=== PATIENT | female | born 1960 | race Hispanic/Latino ===

== ENCOUNTER 2019-01-30 21:36 | Emergency (ER) | payer OTHER ==
[~2019-01-30] VITALS: Ht 152.4 cm; Wt 67.1 kg
[2019-01-30] MEDS ORDERED: NEOMYCIN/POLYMYX/BACITR OINT 0.9 GM PKT ONE (22:03)
[2019-01-30] MEDS ORDERED: TETANUS/DIPHTHERIA TOX ADULT 0.5 ML SYR ONE (22:04)
[2019-01-30] MEDS: TETANUS/DIPHTHERIA TOX ADULT 0.5 ML SYR IM ONE (22:08)
--- NOTE | 2019-01-31 05:04 | NUR ---
ATTEMPTED TO REPORT THE ANIMAL BITE TO THE [facility], I WAS TOLD BY A KELSEY THAT BECAUSE THE PATIENT WAS NO LONGER IN THE ER, THAT THEY CULD NOT TAKE A REPORT.
== END 2019-01-30 22:00 | disposition home or self-care (01) ==
LOC: FSED 21:36
DX: S80.871A Other superficial bite, right lower leg, initial encounter (principal); W54.0XXA Bitten by dog, initial encounter; Y93.9 Activity, unspecified; Y92.009 Unspecified place in unspecified non-institutional (private) residence as the place of occurrence of the external cause; Z23 Encounter for immunization
CPT/HCPCS: 90714; 99283

== ENCOUNTER 2020-02-07 15:50 | Emergency (ER) | payer OTHER ==
[~2020-02-07] VITALS: Ht 152.4 cm; Wt 69.1 kg
[2020-02-07] MEDS ORDERED: PYRIDIUM100 MG PO (15:57)
[2020-02-07] MEDS ORDERED: BACTRIM DS TAB1 EACH PO (15:57)
--- NOTE | 2020-02-07 16:06 | Emergency Department Note ---
History of Present Illnes History of Present Illness Chief Complaint: Genitourinary History of Present Illness This is a 59 year old female . Historian: Patient Arrival Mode: Car Cycle Counter Required: No Onset (how long ago): hour(s) Location: urinary urgency and frequency Quality: no dysuria Radiation: Denies non-radiation, Denies back, Denies neck, Denies extremity, Denies abdomen, Denies periumbilical, Denies flank, Denies proximal, Denies distal, Denies other Severity: mild Onset quality: sudden Duration (how long): hour(s) (12) Timing of current episode: constant Progression: unchanged Chronicity: recurrent Context: Denies recent illness, Denies recent surgery, Denies recent immobilization, Denies recent travel, Denies trauma/injury, Denies new medica tions, Denies hx of DVT/PE, Denies non-compliance w/ medications, Denies other Relieving factors: none Exacerbating factors: none Associated symptoms: Denies denies other symptoms, Denies confusion, Denies chest pain, Denies cough, Denies diaphoresis, Denies fever/chills, Denies headaches, Denies loss of appetite, Denies malaise, Denies nausea/vomiting, Denies rash, Denies seizure, Denies shortness of breath, Denies syncope, Denies weakness, Denies other Treatments prior to arrival: none Past Medical/Family History Physician Review I have reviewed the patient's past medical and family history. Any updates have been documented here. Past Medical History Recent Fever: No Clinical Suspicion of Infectio: No New/Unexplained Change in Ment: No Past Medical History: Diabetes Past Surgical History: Hysterectomy Social History Smoking Cessation: Never Smoker Alcohol Use: None Any Illegal Drug Use: No Other Last Tetanus: UNKNOWN Review of Systems Review of Systems Constitutional: Denies fever Genitourinary: Reports frequency; Denies dysuria, Denies hematuria, Denies pain Musculoskeletal: Denies back pain Review of other systems: All other systems negative Physical Exam Related Data Vital signs reviewed: Yes Physical Exam CONSTITUTIONAL Constitutional: Present well-developed HENT HENT: Present normocephalic EYES Eyes: Reports conjunctivae normal NECK Neck: Present supple PULMONARY Pulmonary: Present breath sounds normal CARDIOVASCULAR Cardiovascular: Present regular rhythm GASTROINTESTINAL Abdominal: Present soft GENITOURINARY SKIN Skin: Present warm MUSCULOSKELETAL Musculoskeletal: Absent edema NEUROLOGICAL Neurological: Present alert PSYCHOLOGICAL Psychological: Present mood/affect normal Results Laboratory Laboratory FS Normal UA Nitrite pos LE small Lab results reviewed: Yes Assessment & Plan Medical Decision Making MDM uti, stones, hyperglycemia Assessment & Plan Final Impression: (1) Urinary tract infection Depart Disposition: HOME, SELF-correction Meds Active Scripts Phenazopyridine Hcl (PYRIDIUM) 100 Mg Tablet, 100 MG PO TID for 2 Days, #6 TAB Prov:YOLY DRIVER MD 02/07/20 Sulfamethoxazole/Trimethoprim (BACTRIM DS TABLET) 1 Each Tablet, 1 EACH PO BID for 7 Days, #14 Prov:YOLY DRIVER MD 02/07/20 YOLY DRIVER MD Feb 07, 2020 16:06
== END 2020-02-07 16:25 | disposition home or self-care (01) ==
LOC: FSED 16:20
DX: N39.0 Urinary tract infection, site not specified (principal); E11.9 Type 2 diabetes mellitus without complications
CPT/HCPCS: 81003; 99283